=== PATIENT | male | born 1980 | race Caucasian/White ===

== ENCOUNTER 2019-12-21 20:37 | Emergency (ER) | payer SELFPAY ==
--- NOTE | 2019-12-21 21:01 | ER Document Report ---
ED Medical Screen (RME) - General Chief Complaint: Abscess Stated Complaint: POSS ABCESS/FEVER Time Seen by Provider: 12/21/19 20:56 Primary Care Provider: TAMERA NEGRON [Primary Care Provider] - Follow up as needed Mode of Arrival: Ambulatory Information source: Patient Notes: 39-year-old male presenting to the emergency department complaint of possible abscess. Patient reports he has an abscess to his right inner thigh near the scrotum. He reports this is been there for several days. He reports he has been running fevers at home greater than 101. He has never had an abscess before. He states he is a borderline diabetic. He does not test his sugars at home. Patient is alert, oriented, no acute distress noted. Unable to visualize the area of concern due to seated position in triage. I have greeted and performed a rapid initial assessment of this patient. A comprehensive ED assessment and evaluation of the patient, analysis of test results and completion of the medical decision making process will be conducted by additional ED providers. I have specifically instructed the patient or family members with the patient to immediately return to any nursing staff should anything change in the patient's condition or with their chief complaint. Physical Exam - Vital signs Vitals: Temp Pulse Resp BP Pulse Ox 99.8 F 103 H 20 148/95 H 97 12/21/19 20:48 12/21/19 20:48 12/21/19 20:48 12/21/19 20:48 12/21/19 20:48 Course - Vital Signs Vital signs: Temp Pulse Resp BP Pulse Ox 99.8 F 103 H 20 148/95 H 97 12/21/19 20:56 12/21/19 20:48 12/21/19 20:48 12/21/19 20:48 12/21/19 20:48 Doctor's Discharge - Discharge Referrals: TAMERA NEGRON [Primary Care Provider] - Follow up as needed
[2019-12-21 21:35] LABS: ABSOLUTE EOSINOPHILS # (AUTO) 0.1 10^3/uL (0.0-0.6); ABSOLUTE LYMPHOCYTES (AUTO) 1.5 10^3/uL (0.5-4.7); ABSOLUTE MONOCYTES (AUTO) 0.8 10^3/uL (0.1-1.4); BASOPHILS % (AUTO) 0.2 % (0-2); EOSINOPHILS % (AUTO) 1.1 % (0-6); HEMATOCRIT 44.7 % (37.9-51.0); LYMPHOCYTES % (AUTO) 12.2 % (13-45); MEAN CORPUSCULAR HEMOGLOBIN 27.1 pg (27.0-33.4); MEAN CORPUSCULAR HGB CONC 33.4 g/dL (32.0-36.0); MEAN CORPUSCULAR VOLUME 81 fl (80-97); MONOCYTES % (AUTO) 6.6 % (3-13); PLATELET COUNT 206 10^3/uL (150-450); RED BLOOD COUNT 5.52 10^6/uL (4.35-5.55); RED CELL DISTRIBUTION WIDTH 13.4 % (11.5-14.0); SEGMENTED NEUTROPHILS % (AUTO) 79.9 % (42-78); TOTAL CELLS COUNTED % (AUTO) 100 %; WHITE BLOOD COUNT 12.5 10^3/uL (4.0-10.5)
[2019-12-21] MEDS ORDERED: LIDOCAINE 1%/EPINEPHRINE INJ 20 ML VIAL INJ ONE (21:36)
--- NOTE | 2019-12-21 21:38 | ER Document Report ---
ED Skin Rash/Insect Bite/Abscs - General Chief Complaint: Abscess Stated Complaint: POSS ABCESS/FEVER Time Seen by Provider: 12/21/19 20:56 Mode of Arrival: Ambulatory Notes: Patient is a 39-year-old male who comes emergency department for chief complaint of an abscess to the right inner thigh. He states that it started out like a pimple 1 week ago, this is been worsening for the past 7 days, he states that over the past day he started running a fever and having body aches and chills. He denies history of abscesses or MRSA, denies ever using IV drugs, does not take any daily prescribed medications, has a past medical history of obesity and was told his blood glucose was "borderline". He denies any other complaints. - Related Data Allergies/Adverse Reactions: No Known Allergies Allergy (Unverified 12/21/19 23:09) Past Medical History - General Information source: Patient - Social History Smoking Status: Current Every Day Smoker Frequency of alcohol use: None Drug Abuse: None Lives with: Family Family History: Reviewed & Not Pertinent Patient has homicidal ideation: No - Past Medical History Cardiac Medical History: Reports: Hx Hypertension - off meds 3 months 12/2019 - Immunizations Immunizations up to date: Yes Hx Diphtheria, Pertussis, Tetanus Vaccination: Yes Review of Systems - Review of Systems Constitutional: See HPI EENT: No symptoms reported Cardiovascular: No symptoms reported Respiratory: No symptoms reported Gastrointestinal: No symptoms reported Genitourinary: No symptoms reported Male Genitourinary: No symptoms reported Musculoskeletal: No symptoms reported Skin: See HPI Hematologic/Lymphatic: No symptoms reported Neurological/Psychological: No symptoms reported Physical Exam - Vital signs Vitals: Temp Pulse Resp BP Pulse Ox 99.8 F 103 H 20 148/95 H 97 12/21/19 20:48 12/21/19 20:48 12/21/19 20:48 12/21/19 20:48 12/21/19 20:48 - Notes Notes: GENERAL: Alert, interacts well. No acute distress. HEAD: Normocephalic, atraumatic. EYES: Pupils equal, round, and reactive to light. Extraocular movements intact. ENT: Oral mucosa moist, tongue midline. Oropharynx unremarkable. Airway patent. NECK: Full range of motion. Supple. Trachea midline. No lymphadenopathy. LUNGS: Clear to auscultation bilaterally, no wheezes, rales, or rhonchi. No respiratory distress. Non-tender chest wall. HEART: Regular rate and rhythm. No murmur ABDOMEN: Soft, non-tender. Non-distended. Bowel sounds present in all 4 quadrants. GENITOURINARY: No tenderness, swelling, erythema, or abnormal findings noted. EXTREMITIES: Moves all 4 extremities spontaneously. No edema, normal radial and dorsalis pedis pulses bilaterally. No cyanosis. BACK: no cervical, thoracic, lumbar midline tenderness. No saddle anesthesia, normal distal neurovascular exam. Moves all extremities in full range of motion. NEUROLOGICAL: Alert and oriented x3. Normal speech. Cranial nerves II through XII grossly intact. Strength 5/5 in all extremities. PSYCH: Normal affect, normal mood. SKIN: There is a tender, indurated, slightly swollen, erythematous area over the left mid thigh with a central head, spreading out erythema. There is no streaking away from the area, no nearby lymphadenopathy, area does not extend to the groin or genitals, area does not spread down close to the knee. Otherwise unremarkable skin exam. Course - Re-evaluation Re-evalutation: I did review laboratory work-up from triage. CBC shows mild leukocytosis with elevation of neutrophils but no bandemia. Chemistry shows mild hyperglycemia. I discussed this with patient, he states he will have this monitored with primary care and he is already aware of this. Patient has an abscess on exam with surrounding cellulitis in the left proximal thigh at the medial aspect. This does not extend to the genitals. The area was cleaned, excised, mixed purulent and bloody drainage expressed, area was packed, discussed care, follow- up, and return precautions with patient. Patient states understanding and agreement with plan. Stable and well-appearing at time of discharge. - Vital Signs Vital signs: Temp Pulse Resp BP Pulse Ox 99.2 F 79 20 112/78 97 12/21/19 23:25 12/21/19 23:19 12/21/19 23:19 12/21/19 23:19 12/21/19 23:19 - Laboratory Result Diagrams: 12/21/19 21:15 12/21/19 22:05 Laboratory results interpreted by me: 12/21/19 12/21/19 12/21/19 21:15 21:19 22:05 WBC 12.5 H Lymph % (Auto) 12.2 L Absolute Neuts (auto) 10.0 H Seg Neutrophils % 79.9 H Sodium 134.4 L Glucose 172 H POC Glucose 158 H Procedures - Incision and Drainage Right proximal medial thigh Type: Single Anesthetic type: 1% Lidocaine w/epi mL's of anesthetic: 9 Blade size: 11 I&D procedure: Chlorprep applied, Shurclens applied, Iodoform packing placed, Sterile dressing applied Incision Method: Incision made by scalpel Discharge - Discharge Clinical Impression: Abscess Cellulitis Qualifiers: Site of cellulitis: extremity Site of cellulitis of extremity: lower extremity Laterality: right Qualified Code(s): L03.115 - Cellulitis of right lower limb Condition: Stable Disposition: HOME, SELF-CARE Instructions: Oral Narcotic Medication ([facility]) Additional Instructions: Your evaluation is consistent with an abscess and surrounding skin infection called cellulitis. There is a small amount of tissue removed along with the abscess being opened and packed. Packing must be removed in 48 hours, you can either remove this at home or be rechecked. Take the antibiotics as pre scribed to completion, I recommend that you rest, elevate your leg, and keep the area clean with soap and water and dressed with absorbent dressing (the gauze provided). Return if you worsen including spreading redness, severe worsening pain or swelling, spiking fevers, or any other concerning symptoms. Prescriptions: Sulfamethoxazole/Trimethoprim [Bactrim Ds Tablet] 1 each PO BID 7 Days #14 tablet Cephalexin Monohydrate [Keflex 500 mg Capsule] 500 mg PO QID #28 capsule
[2019-12-21 22:34] LABS: ALBUMIN 3.9 g/dL (3.5-5.0); ALKALINE PHOSPHATASE 104 U/L (38-126); ANION GAP 5 (5-19); ASPARTATE AMINO TRANSFERASE 29 U/L (17-59); BILIRUBIN,TOTAL 0.7 mg/dL (0.2-1.3); BLOOD UREA NITROGEN 16 mg/dL (7-20); CALCIUM 8.9 mg/dL (8.4-10.2); CARBON DIOXIDE 28 mmol/L (22-30); CHLORIDE 101 mmol/L (98-107); GLUCOSE 172 mg/dL (75-110); POTASSIUM 4.7 mmol/L (3.6-5.0); TOTAL PROTEIN 7.2 g/dL (6.3-8.2)
[2019-12-21] MEDS ORDERED: ONDANSETRON HCL INJ/PF 4 MG/2 ML SDV IV ONE (22:41)
[2019-12-21] MEDS ORDERED: FENTANYL CITRATE INJ/PF 100 MCG/2 ML AMPUL IV ONE (22:41)
[2019-12-21] MEDS ORDERED: HYDROCODONE/ACETAMINOPHEN 5-325 MG (6 TAB/ER DISP) PO PRN (23:03)
[2019-12-21] MEDS ORDERED: CEPHALEXIN 500 MG CAPSULE PO ONE (23:04)
[2019-12-21] MEDS ORDERED: SULFAMETHOXAZOLE/TRIMETHOPRIM 800-160 MG TABLET PO ONE (23:04)
[2019-12-21 23:20] VITALS: BP 112/78
== END 2019-12-21 23:25 | disposition home or self-care (01) ==
LOC: ER 20:37
PROC: 0H9HXZZ Drainage of Right Upper Leg Skin, External Approach (ICD-10-PCS; principal; 2019-12-21)
DX: L02.415 Cutaneous abscess of right lower limb (principal); L03.115 Cellulitis of right lower limb; R50.9 Fever, unspecified; F17.200 Nicotine dependence, unspecified, uncomplicated
CPT/HCPCS: 99283; 96374; 96375; 36415; 87040; 82962; 85025; 80053; 10060; J3010; J3490; J2405